=== PATIENT | female | born 1960 | race Caucasian/White ===

== ENCOUNTER 2024-02-27 07:10 | Day surgery (SDC) | payer BC, OTHER ==
[~2024-02-27] VITALS: Ht 160 cm; Wt 104.5 kg
[~2024-02-27 07:10] MED LIST: IBUP-1985 PO; LOSA-416 PO; ONDA-243 PO
[2024-02-27 07:33] VITALS: BP 160/97; PULSE 70; RESP 12
[2024-02-27] MEDS ORDERED: diphenhydrAMINE 50 mg/ml inj ONE (08:27)
[2024-02-27] MEDS ORDERED: MIDAZolam 1 MG/ML 5ML VIAL ONE (08:27)
[2024-02-27] MEDS ORDERED: fentaNYL/PF 50MCG/1 ML 2ML syringe ONE (08:27)
[2024-02-27 08:54] VITALS: BP 126/76; PULSE 62; RESP 18; O2SAT 98
[2024-02-27 09:04] VITALS: BP 121/77; PULSE 62; RESP 16; O2SAT 96
[2024-02-27 09:14] VITALS: BP 122/76; PULSE 61; RESP 16; O2SAT 96
[2024-02-27 09:24] VITALS: BP 139/81; PULSE 56; RESP 18; O2SAT 98
== END 2024-02-27 09:45 | disposition home or self-care (01) ==
LOC: GI LAB 07:10
PROVIDERS: ATTEND Internal Medicine Gastroenterology
DX: Z12.11 Encounter for screening for malignant neoplasm of colon (principal); K57.30 Diverticulosis of large intestine without perforation or abscess without bleeding; Z86.010 Personal history of colon polyps; Z80.0 Family history of malignant neoplasm of digestive organs
CPT/HCPCS: 45378; 99152; J1200; J2250; J3010; J7030; Z7512; A4620